=== PATIENT | male | born 1965 | race African-American/Black ===

== ENCOUNTER 2018-04-30 13:06 | Inpatient (IN) | payer OTHER ==
[2018-04-30] MEDS ORDERED: HYDROCODONE/APAP (5/325) TAB PO (18:30)
[2018-04-30] MEDS ORDERED: DOCUSATE SODIUM 100 MG CAP PO (18:30)
[2018-04-30] MEDS ORDERED: ZOLPIDEM 5 MG TAB PO (18:30)
[2018-04-30] MEDS ORDERED: NACL 0.9% 3 ML SYG IV (18:30)
[2018-04-30] MEDS ORDERED: ONDANSETRON 4 MG INJ IV (18:30)
[2018-04-30] MEDS ORDERED: MAGNESIUM HYDROXIDE 30ML CUP PO (18:30)
[2018-04-30] MEDS ORDERED: morphine 2 MG INJ IV (18:30)
[2018-04-30] MEDS ORDERED: BISACODYL 10 MG SUPP PR (18:30)
[2018-04-30] MEDS ORDERED: GUAIFENESIN/DM 5ML CUP PO (18:30)
[2018-04-30] MEDS ORDERED: BISACODYL (EC) 5 MG TAB PO (18:30)
[2018-04-30] MEDS: SOD CHLORIDE 0.9% 1,000 ML IV (18:55)
[2018-04-30] MEDS: METHYLPREDNISOLONE 125 MG INJ IV ×3 (18:56→21:09)
[2018-04-30] MEDS: AZITHROMYCIN 250 MG TAB PO (18:56)
[2018-04-30] MEDS: MAGNESIUM OXIDE 400 MG TAB PO ×3 (18:56→21:09)
[2018-04-30] MEDS: ALBUTEROL 0.083% (NEB) 2.5 MG/3 ML AMP HHN ×2 (20:53→21:25)
[2018-04-30] MEDS: CEFTRIAXONE 2 GM/50 ML (PMX) 50 ML IVPB (21:00)
[2018-04-30] MEDS: ACETAMINOPHEN 325 MG TAB PO (21:08)
[2018-04-30] MEDS: traMADol 50 MG TAB PO (22:06)
[2018-05-01] MEDS: ALBUTEROL 0.083% (NEB) 2.5 MG/3 ML AMP HHN ×2 (00:29→09:54)
[2018-05-01] MEDS: SOD CHLORIDE 0.9% 1,000 ML IV (04:19)
[2018-05-01 06:03] LABS: ADD MAN DIFF? NO
[2018-05-01 06:05] LABS: BASOPHILS % 0.1 % (0.0-2.0); HEMATOCRIT 44.7 % (42.0-52.0); HEMOGLOBIN 14.8 g/dl (14.0-18.0); LYMPHOCYTES # 0.8 10^3/ul (0.8-2.9); LYMPHOCYTES % 7.5 % (15.0-51.0); MEAN CORPUSCULAR HEMOGLOBIN 31.1 pg (29.0-33.0); MEAN CORPUSCULAR HGB CONC 33.1 g/dl (32.0-37.0); MEAN CORPUSCULAR VOLUME 93.9 fl (82.0-101.0); MEAN PLATELET VOLUME 9.8 fl (7.4-10.4); MONOCYTE # 0.1 10^3/ul (0.3-0.9); MONOCYTES % 0.7 % (0.0-11.0); NEUTROPHILS % 91.2 % (39.0-77.0); PLATELET COUNT 245 10^3/UL (140-415); RED BLOOD COUNT 4.76 10^6/ul (4.70-6.10); RED CELL DISTRIBUTION WIDTH 13.6 % (11.5-14.5)
[2018-05-01 06:21] LABS: INR 0.89; PROTIME 12.1 Sec (11.9-14.9); PT RATIO 0.9
[2018-05-01 06:26] LABS: ALANINE AMINOTRANSFERASE 16 IU/L (13-69); ALBUMIN 4.2 g/dl (3.3-4.9); ALBUMIN/GLOBULIN RATIO 1.27; ALKALINE PHOSPHATASE 88 IU/L (42-121); ANION GAP 13 (5-13); ASPARTATE AMINO TRANSFERASE 27 IU/L (15-46); BLOOD UREA NITROGEN 11 mg/dl (7-20); CARBON DIOXIDE 20 mmol/L (21-31); CHLORIDE 108 mmol/L (97-110); CREATININE 1.11 mg/dl (0.61-1.24); Estimated GFR > 60 mL/min (>60); GLUCOSE 169 mg/dl (70-220); MAGNESIUM 2.3 mg/dl (1.7-2.5); POTASSIUM 4.2 mmol/L (3.5-5.1); SODIUM 141 mmol/L (135-144); TOTAL PROTEIN 7.5 g/dl (6.1-8.1)
[2018-05-01 06:33] LABS: HEMOGLOBIN A1C 5.6 % (0-5.9)
[2018-05-01] MEDS: AZITHROMYCIN 250 MG TAB PO (08:54)
[2018-05-01] MEDS: ENOXAPARIN 40 MG/0.4 ML SYG SC (08:54)
== END 2018-05-01 11:55 | disposition home or self-care (01) | DRG 203 ==
LOC: 6WM 13:06
DX: J45.909 Unspecified asthma, uncomplicated (principal); F17.200 Nicotine dependence, unspecified, uncomplicated
CPT/HCPCS: 71045; 80053; 83036; 83735; 84443; 85025; 85610; 87400; 94640; 94664